=== PATIENT | male | born 1950 | race Caucasian/White ===

== ENCOUNTER → 2017-04-29 | Outpatient (REF) | payer BC, MEDICARE | LOC: M SFHCCAPE 12:40 | PROVIDERS: ATTEND Physician Assistant | DX: R86.9 Unspecified abnormal finding in specimens from male genital organs (principal); R23.8 Other skin changes ==

== ENCOUNTER → 2019-05-30 | Outpatient (REF) | payer BC, MEDICARE | LOC: M LAB REF 19:09 | PROVIDERS: ATTEND Dermatology | DX: D48.9 Neoplasm of uncertain behavior, unspecified (principal) ==

== ENCOUNTER → 2020-04-09 | Outpatient (REF) | payer BC ==
[2020-04-09 13:29] LABS: BLOOD UREA NITROGEN 18 MG/DL (7-18); CALCIUM LEVEL 8.9 MG/DL (8.8-10.2); CARBON DIOXIDE LEVEL 31 MEQ/L (21-32); CHLORIDE LEVEL 107 MEQ/L (98-107); CHOLESTEROL LEVEL 128 MG/DL (<200); CHOLESTEROL RISK RATIO 2.844 (<5); CREATININE FOR GFR 1.16 MG/DL (0.70-1.30); GLOMERULAR FILTRATION RATE > 60.0 (>42); GLUCOSE, FASTING 95 MG/DL (70-100); HDL CHOLESTEROL 45 MG/DL (>40); LDL CHOLESTEROL 66 MG/DL (<100); NON-HDL-C 83 MG/DL; POTASSIUM SERUM 4.4 MEQ/L (3.5-5.1); SODIUM LEVEL 143 MEQ/L (136-145); TRIGLYCERIDES LEVEL 86 MG/DL (<150)
== END ==
LOC: M LABDRAWC 11:22
PROVIDERS: ATTEND Physician Assistant
DX: I25.10 Atherosclerotic heart disease of native coronary artery without angina pectoris (principal); I11.9 Hypertensive heart disease without heart failure

== ENCOUNTER 2021-12-19 07:50 | Observation (INO) | payer BC, MEDICARE ==
[~2021-12-19] VITALS: Ht 195.6 cm; Wt 59.2 kg
[2021-12-19] MEDS ORDERED: OXYC1TAB23 PO (08:18)
[2021-12-19] MEDS ORDERED: ATOR80TA59 PO (08:18)
[2021-12-19] MEDS ORDERED: FLOM0.4C39 PO (08:18)
[2021-12-19 09:29] LABS: BASO % 0.4 % (0.0-1.0); EOS % 0.3 % (0.0-3.0); HEMATOCRIT 42.2 % (42.0-52.0); HEMOGLOBIN 14.6 g/dl (13.5-17.5); LYMPH # 0.9 10^3/uL (1.5-5.0); LYMPH % 8.2 % (24.0-44.0); MEAN CORPUSCULAR HEMOGLOBIN 32.7 pg (27.0-33.0); MEAN CORPUSCULAR HGB CONC 34.6 g/dl (32.0-36.5); MEAN CORPUSCULAR VOLUME 94.6 fl (80.0-96.0); MONO # 0.6 10^3/uL (0.0-0.8); MONO % 6.2 % (2.0-8.0); NEUTROPHILS # 8.8 10^3/uL (1.5-8.5); NEUTROPHILS % 84.6 % (36.0-66.0); PLATELET COUNT, AUTOMATED 144 10^3/uL (150-450); RED BLOOD COUNT 4.46 10^6/uL (4.30-6.10); WHITE BLOOD COUNT 10.4 10^3/uL (4.0-10.0)
[2021-12-19] MEDS ORDERED: NS 500 ML IV ONE ×2 (09:35→10:55)
[2021-12-19] MEDS ORDERED: MORPHINE 2 MG/ML 1ML VIAL IV ONE (09:35)
[2021-12-19] MEDS ORDERED: ONDANSETRON 4MG 2ML VIAL IV ONE (09:35)
[2021-12-19 10:04] LABS: RSV AMPLIFICATION NEGATIVE (NEGATIVE)
[2021-12-19] MEDS ORDERED: KETOROLAC 30 MG/ML 1ML VIAL IV ONE (10:55)
[2021-12-19] MEDS ORDERED: MORPHINE 2 MG/ML 1ML VIAL IV PRN (11:55)
[2021-12-19] MEDS ORDERED: NS 1,000 ML IV SCH (12:00)
[2021-12-19] MEDS ORDERED: ONDANSETRON 4MG 2ML VIAL IV PRN (12:20)
[2021-12-19 12:36] LABS: INR 0.97; PROTHROMBIN TIME 13.3 SECONDS (12.7-14.5)
[2021-12-19 12:37] LABS: PARTIAL THROMBOPLASTIN TIME 30.6 SECONDS (25.9-37.0)
[2021-12-19 12:47] LABS: ALBUMIN 3.4 GM/DL (3.2-5.2); BILIRUBIN,TOTAL 0.6 MG/DL (0.2-1.0); CALCIUM LEVEL 8.6 MG/DL (8.8-10.2); CREATININE FOR GFR 1.57 MG/DL (0.70-1.30); GLOMERULAR FILTRATION RATE 46.3 (>42); POTASSIUM SERUM 5.4 MEQ/L (3.5-5.1); TOTAL PROTEIN 6.4 GM/DL (6.4-8.2)
[2021-12-19] MEDS ORDERED: ASPI-1 PO (13:02)
[2021-12-19] MEDS ORDERED: HOME MED LIST COMPLETE! XX SCH (13:10)
[2021-12-19 13:20] VITALS: BP 135/84
[2021-12-19 14:00] VITALS: BP 137/83
[2021-12-19] MEDS ORDERED: MIDAZOLAM INJ 2MG/2ML VIAL (J2250 PER 1MG) As Ordered ONE (16:57)
[2021-12-19] MEDS ORDERED: fentaNYL 100 MCG/2 ML INJECTION As Ordered ONE (16:58)
[2021-12-19] MEDS ORDERED: propofoL 200 MG/20 ML VIAL As Ordered ONE (17:01)
[2021-12-19] MEDS ORDERED: LIDOCAINE 2% 100MG/5ML SDV (FOR ANES.) As Ordered ONE (17:01)
[2021-12-19] MEDS ORDERED: ISOVUE-300 61% 50ML VIAL As Ordered ONE (17:03)
[2021-12-19] MEDS ORDERED: ONDANSETRON 4MG 2ML VIAL As Ordered ONE (17:07)
[2021-12-19] MEDS ORDERED: ceFAZolin 2 GM/D5W 50 ML IV BAG (J0690 PER 500MG) As Ordered ONE (17:54)
[2021-12-19] MEDS ORDERED: TAMSULOSIN 0.4 MG CAP PO SCH (18:00)
[2021-12-19] MEDS ORDERED: PERCOCET 5MG/325MG TAB PO PRN (18:25)
[2021-12-19 20:08] VITALS: BP_SYST 160; BP_SYST 81; BP_DIAS 81
[2021-12-19] MEDS: NS 0.45% 1,000 ML IV SCH (20:15)
[2021-12-19 20:38] VITALS: BP 155/76
[2021-12-19] MEDS ORDERED: ATORVASTATIN 20 MG TAB PO SCH (21:00)
[2021-12-19] MEDS ORDERED: ASPIRIN 325 MG TAB PO SCH (21:00)
[2021-12-19 21:38] VITALS: BP 145/72
[2021-12-19 22:40] VITALS: BP 141/71
[2021-12-20 02:00] VITALS: BP 138/76
[2021-12-20] MEDS: ACETAMINOPHEN TAB 650MG DOSE (2X325MG) PO PRN ×2 (03:17→07:48)
[2021-12-20 06:00] VITALS: BP 137/71
[2021-12-20] MEDS: NS 0.45% 1,000 ML IV SCH (06:15)
[2021-12-20 06:29] LABS: HEMATOCRIT 35.3 % (42.0-52.0); MEAN CORPUSCULAR HEMOGLOBIN 33.1 pg (27.0-33.0); MEAN CORPUSCULAR HGB CONC 35.1 g/dl (32.0-36.5); MEAN CORPUSCULAR VOLUME 94.1 fl (80.0-96.0); PLATELET COUNT, AUTOMATED 124 10^3/uL (150-450); RED BLOOD COUNT 3.75 10^6/uL (4.30-6.10); WHITE BLOOD COUNT 9.8 10^3/uL (4.0-10.0)
[2021-12-20 06:34] LABS: HEMOGLOBIN 12.4 g/dl (13.5-17.5)
[2021-12-20 07:00] LABS: ALBUMIN 3.1 GM/DL (3.2-5.2); BILIRUBIN,TOTAL 1.3 MG/DL (0.2-1.0); CALCIUM LEVEL 8.4 MG/DL (8.8-10.2); CREATININE FOR GFR 1.66 MG/DL (0.70-1.30); GLOMERULAR FILTRATION RATE 43.4 (>42); POTASSIUM SERUM 4.6 MEQ/L (3.5-5.1); TOTAL PROTEIN 5.1 GM/DL (6.4-8.2)
[2021-12-20] MEDS ORDERED: ACET1TAB55 PO (07:43)
[2021-12-20 08:00] VITALS: BP 130/72
== END 2021-12-20 09:50 | disposition home or self-care (01) ==
LOC: M ED 07:50 → M ED INP 10:57 → ENRESERV 11:40 → M MS5PR 13:20
PROVIDERS: ADMIT Internal Medicine; ATTEND Internal Medicine
DX: N13.2 Hydronephrosis with renal and ureteral calculous obstruction (principal); N17.9 Acute kidney failure, unspecified; E87.5 Hyperkalemia; R31.9 Hematuria, unspecified; I25.10 Atherosclerotic heart disease of native coronary artery without angina pectoris; E78.5 Hyperlipidemia, unspecified; Z87.442 Personal history of urinary calculi; Z87.19 Personal history of other diseases of the digestive system; Z95.5 Presence of coronary angioplasty implant and graft; Z79.899 Other long term (current) drug therapy; Z91.030 Bee allergy status
CPT/HCPCS: 36415; 52356; 74018; 74420; 80047; 80053; 81001; 82365; 85025; 85027; 85610; 85730; 87631; 93005; 96361; 96374; 96375; 99284; C1769; C1894; C2617; J0690; J1885; J2250; J2270; J2405; J3010; Q9967

== ENCOUNTER → 2022-09-21 | Outpatient (REF) | payer BC ==
[~2022-09-21] MED LIST: ACET1TAB55 PO; ASPI-1 PO; ATOR80TA59 PO; FLOM0.4C39 PO; OXYC1TAB23 PO
== END ==
LOC: M SMT 16:51
PROVIDERS: ATTEND Physician Assistant
DX: N20.0 Calculus of kidney (principal)

== ENCOUNTER 2023-02-18 07:31 | Day surgery (SDC) | payer BC ==
[~2023-02-18] VITALS: Ht 185.4 cm; Wt 85.0 kg
[~2023-02-18 07:31] MED LIST changes: +NS 1,000 ML IV ONE; +POTA10808 PO; +[UNRECOGNIZED DRUG - CODE] PO
[2023-02-18] MEDS ORDERED: propofoL 200 MG/20 ML VIAL As Ordered ONE ×3 (07:49→08:48)
[2023-02-18] MEDS ORDERED: LIDOCAINE 2% 100MG/5ML SDV (FOR ANES.) As Ordered ONE (08:49)
[2023-02-18] MEDS ORDERED: fentaNYL 100 MCG/2 ML INJECTION As Ordered ONE (09:04)
[2023-02-18 09:45] VITALS: BP 149/76; TEMP 97.1; O2SAT 96
== END 2023-02-18 09:56 | disposition home or self-care (01) ==
LOC: M OPP 07:31
PROVIDERS: ATTEND Surgery
DX: Z12.11 Encounter for screening for malignant neoplasm of colon (principal); Z86.010 Personal history of colon polyps; K63.5 Polyp of colon; K57.30 Diverticulosis of large intestine without perforation or abscess without bleeding; K29.70 Gastritis, unspecified, without bleeding; Z79.82 Long term (current) use of aspirin; Z79.02 Long term (current) use of antithrombotics/antiplatelets; Z79.899 Other long term (current) drug therapy; Z91.030 Bee allergy status
CPT/HCPCS: 43239; 45380; 88305; J3010

== ENCOUNTER → 2025-01-16 | Outpatient (CLI) | payer BC ==
[~2025-01-16] MED LIST changes: -FLOM0.4C39 PO; -NS 1,000 ML IV ONE; -POTA10808 PO; +POTA10809 PO; +PROHANCE 279.3MG/ML 15ML VIAL ONE; +TAMS-18 PO
== END ==
LOC: M PLAIMG 13:37
PROVIDERS: ATTEND Physician Assistant Medical
DX: H90.3 Sensorineural hearing loss, bilateral (principal)
CPT/HCPCS: 70553; A9576

== ENCOUNTER → 2025-01-24 | Outpatient (CLI) | payer BC ==
[~2025-01-24] MED LIST changes: -PROHANCE 279.3MG/ML 15ML VIAL ONE
== END ==
LOC: M SOG 06:54
PROVIDERS: ATTEND Physician Assistant
DX: M18.12 Unilateral primary osteoarthritis of first carpometacarpal joint, left hand (principal); M25.842 Other specified joint disorders, left hand

== ENCOUNTER 2025-02-01 12:21 | Emergency (ER) | payer BC ==
[~2025-02-01] VITALS: Ht 195.6 cm; Wt 75.6 kg
[2025-02-01] MEDS ORDERED: B-12100010 PO (12:49)
[2025-02-01] MEDS ORDERED: OMEP40CA5 (12:49)
[2025-02-01] MEDS ORDERED: ELIQ5TAB (12:49)
[2025-02-01 13:28] LABS: BASO # 0.0 10^3/uL (0.0-0.2); BASO % 0.5 % (0.0-1.0); EOS # 0.0 10^3/uL (0.0-0.5); EOS % 0.3 % (0.0-3.0); LYMPH # 1.4 10^3/uL (1.5-5.0); LYMPH % 17.9 % (24.0-44.0); MONO # 0.7 10^3/uL (0.0-0.8); MONO % 9.1 % (2.0-8.0); NEUTROPHILS # 5.7 10^3/uL (1.5-8.5); NEUTROPHILS % 71.9 % (36.0-66.0); PLATELET COUNT, AUTOMATED 164 10^3/uL (150-450)
[2025-02-01] MEDS ORDERED: ISOVUE-370 76% 100 ML VIAL As Ordered ONE (13:52)
[2025-02-01 14:00] LABS: CALCIUM LEVEL 9.0 MG/DL (8.3-10.6); CARBON DIOXIDE LEVEL 30.0 MMOL/L (20-31); CHLORIDE LEVEL 105.0 MMOL/L (98-107); CK-MB VALUE MASS 1.0 NG/ML (<3.6); CREATININE FOR GFR 1.11 MG/DL (0.70-1.30); GLOMERULAR FILTRATION RATE 68.8 (>42); MAGNESIUM LEVEL 2.2 MG/DL (1.8-2.4); POTASSIUM SERUM 4.3 MMOL/L (3.5-5.1); SODIUM LEVEL 143.0 MMOL/L (136-145)
[2025-02-01 14:17] LABS: CPK CREATINE PHOSPHOKINASE 57.0 U/L (46-171); MB/CK RELATIVE INDEX 1.75 (< OR =4)
[2025-02-01 15:05] LABS: CK-MB VALUE MASS 1.3 NG/ML (<3.6)
[2025-02-01 15:08] LABS: CPK CREATINE PHOSPHOKINASE 58 U/L (46-171); MB/CK RELATIVE INDEX 2.24 (< OR =4)
[2025-02-01 15:36] VITALS: O2SAT 98
[2025-02-01 15:44] VITALS: BP 133/74; TEMP 97
== END 2025-02-01 15:55 | disposition home or self-care (01) ==
LOC: M ED 12:21
DX: R42 Dizziness and giddiness (principal); R00.1 Bradycardia, unspecified; I10 Essential (primary) hypertension; E78.5 Hyperlipidemia, unspecified; Z91.030 Bee allergy status; Z79.1 Long term (current) use of non-steroidal anti-inflammatories (NSAID); Z79.01 Long term (current) use of anticoagulants; Z79.899 Other long term (current) drug therapy
CPT/HCPCS: 36415; 70450; 70496; 70498; 80047; 80048; 82550; 82553; 83735; 84484; 85025; 93005; 93041; 94760; 99285; Q9967